=== PATIENT | female | born 1995 | race Caucasian/White ===

== ENCOUNTER 2018-03-05 09:55 | Emergency (ER) | payer MEDICAID | END 2018-03-05 11:08 | disposition home or self-care (01) | LOC: FTE 09:55 | DX: S93.601A Unspecified sprain of right foot, initial encounter (principal); X58.XXXA Exposure to other specified factors, initial encounter; Y92.9 Unspecified place or not applicable | CPT/HCPCS: 73630; 81025; 99283-25 ==